=== PATIENT | female | born 1975 | race Caucasian/White ===

== ENCOUNTER → 2017-02-05 | Day surgery (SDC) | payer OTHER | END | disposition home or self-care (01) | LOC: SDC 07:19 | DX: N20.0 Calculus of kidney (principal); E66.01 Morbid (severe) obesity due to excess calories; J45.909 Unspecified asthma, uncomplicated; G47.30 Sleep apnea, unspecified; Z68.41 Body mass index [BMI] 40.0-44.9, adult; Z88.5 Allergy status to narcotic agent; Z90.49 Acquired absence of other specified parts of digestive tract; Z90.710 Acquired absence of both cervix and uterus; E89.0 Postprocedural hypothyroidism | CPT/HCPCS: C1758; C2617; J2704; Q9967 ==